=== PATIENT | male | born 2000 | race Caucasian/White ===

== ENCOUNTER 2022-02-10 14:03 | Outpatient (CLI) | payer OTHER, SELFPAY ==
--- NOTE | 2022-02-10 | ECG_ITS ---
Measurements Intervals [place] Rate: 78 P: 61 WI: 132 QRS: 84 QRSD: 114 T: 54 QT: 344 QTc: 392 Interpretive Statements SINUS RHYTHM WITH A BRIEF RUN OF SVT MODERATE INTRAVENTRICULAR CONDUCTION DELAY [110+ ms QRS DURATION] NO PREVIOUS ECG AVAILABLE FOR COMPARISON Electronically Signed On 02-10-2022 20:38:41 CDT by Tricia Magaña M.D.
== END 2022-02-10 14:04 | disposition home or self-care (01) ==
PROVIDERS: PCP Pediatrics; Visit Provider Pediatrics
DX: R07.89 Other chest pain (principal); I45.9 Conduction disorder, unspecified
CPT/HCPCS: 93005